=== PATIENT | male | born 1970 | race Caucasian/White ===

== ENCOUNTER 2020-08-01 10:15 | Emergency (ER) | payer BC ==
[2020-08-01 10:21] VITALS: BP 127/89; PULSE 66; TEMP 99; BMI 25.0
== END 2020-08-01 11:01 | disposition home or self-care (01) ==
LOC: FER 10:15
PROC: 0HQGXZZ Repair Left Hand Skin, External Approach (ICD-10-PCS; principal; 2020-08-01)
DX: S61.412A Laceration without foreign body of left hand, initial encounter (principal); W26.0XXA Contact with knife, initial encounter
CPT/HCPCS: 99282-25

== ENCOUNTER 2020-08-08 08:07 | Emergency (ER) | payer BC ==
[2020-08-08 08:17] VITALS: BP 115/66; PULSE 71; TEMP 98.9; BMI 31.2
== END 2020-08-08 08:46 | disposition home or self-care (01) ==
LOC: FER 08:07
DX: Z48.02 Encounter for removal of sutures (principal)
CPT/HCPCS: 99281-25